=== PATIENT | female | born 1945 | race Caucasian/White ===

== ENCOUNTER 2018-01-26 16:20 | Inpatient (IN) ==
[2018-01-26] MEDS ORDERED: ASPIRIN 325 MG TABLET PO STA (17:13)
[2018-01-26] MEDS ORDERED: NITROGLYCERIN 2% OINT 1 INCH/GM PACK TOP STA (17:13)
[2018-01-26] MEDS ORDERED: methylPREDNISolone SOD SUC 125 MG/2 ML VIAL IV STA (17:13)
[2018-01-26] MEDS ORDERED: MORPHINE 4 MG/1 ML VIAL IV STA (17:13)
[2018-01-26] MEDS ORDERED: ONDANSETRON 4 MG/2 ML VIAL IV STA (17:13)
[2018-01-26] MEDS ORDERED: ALBUTEROL/IPRATROPIUM 3 ML NEB RESP TX STA (17:13)
[2018-01-26] MEDS ORDERED: ALUM/MAG/SIMETH/LIDO VISC 1:1 30 ML BOTTLE PO STA (17:13)
[2018-01-26] MEDS ORDERED: ENOXAPARIN 100 MG/ML SYRINGE SUBCUT STA (17:13)
[2018-01-26 17:21] LABS: Basophils # 0.1 10*3/uL (0.0-0.2); Basophils % 0.8 % (0.0-0.8); Eosinophils # 0.2 10*3/uL (0.0-0.87); Eosinophils % 2.2 % (0.00-10.9); Hematocrit 45.5 VOL% (35.7-47.0); Hemoglobin 14.7 GM/DL (12.0-16.0); Immature Granulocytes % 0.3 %; Immature Granulocytes Absolute 0.03 #; Lymphocytes # 1.7 10*3/uL (1.4-4.0); Lymphocytes % 17.5 % (21.3-54.2); Mean Corpuscular HGB Conc 32.3 GM/DL (32-36); Mean Corpuscular Hemoglobin 28 PG (27-34); Mean Corpuscular Volume 87.5 FL (87-102); Mean Platelet Volume 9.8 FL (9.6-12.0); Monocytes # 0.8 10*3/uL (0.11-0.8); Monocytes % 7.7 % (1.7-12.7); Neutrophils # 7.1 10*3/uL (1.4-7.4); Neutrophils % 71.5 % (38.7-73.9); Platelet Count 311 T/CUMM (130-400); Red Cell Distribution Width 14.7 % (9.3-17.3); White Blood Count 9.9 T/CUMM (4-12)
[2018-01-26] MEDS ORDERED: ENOXAPARIN 80 MG/0.8 ML SYRINGE SUBCUT ONE (17:29)
[2018-01-26 17:30] LABS: PT Patient Result 10.5 SECS
[2018-01-26 17:38] LABS: Alanine Aminotransferase 21 U/L (13-56); Albumin 4.1 G/DL (3.4-5.0); Alkaline Phosphatase 81 U/L (45-117); Aspartate Amino Transferase 24 U/L (0-37); Bilirubin,Total < 0.39 MG/DL (0.2-1.0); Blood Urea Nitrogen 18 MG/DL (7-18); Calcium 9.3 MG/DL (8.5-10.1); Glucose 108 MG/DL (74-106); Osmolality,Calculated 277.7 MOS/KG (273-304); Potassium 2.8 MMOL/L (3.5-5.1); Sodium 138 MMOL/L (136-145); Total Protein 7.5 G/DL (6.4-8.3)
[2018-01-26] MEDS ORDERED: POTASSIUM CHLORIDE 20 MEQ TABLET PO STA (17:44)
[2018-01-26 17:48] LABS: Apearance,Urine Slightly Hazy (Clear); Bilirubin,Urine Negative (Negative); Blood, Urine Negative (Negative); Glucose,Urine (UA) Negative (Negative); Ketones,Urine Negative (Negative); Mucus,Urine Occasional /LPF (Occasional); Nitrite,Urine Negative (Negative); Protein,Urine Negative; RBC,Urine 3 /HPF (0-4); Squamous Epithelial Cell,Urine Occasional /HPF (0-10); Urine Color Yellow (Yellow); Urine Urobilinogen < 2.0 EU/DL (0.2-1.0); WBC,Urine 6 /HPF (0-6)
[2018-01-26] MEDS ORDERED: ALBUTEROL 2.5 MG/3 ML NEB RESP TX PRN (18:35)
[2018-01-26] MEDS ORDERED: POTASSIUM CHLORIDE RIDER 10 MEQ in PREMIX 1 EACH IV PRN (18:53)
[2018-01-26 19:24] LABS: Risk Ratio 2.07; VLDL CHOLESTEROL 14.6 MG/DL
[2018-01-26] MEDS: ALBUTEROL/IPRATROPIUM 3 ML NEB RESP TX SCH (19:30)
[2018-01-26] MEDS ORDERED: LEVOFLOXACIN INJ 100 ML IV ONE (19:47)
[2018-01-26] MEDS ORDERED: methylPREDNISolone SOD SUC 40 MG/1 ML VIAL ONE (19:48)
[2018-01-26] MEDS: LEVOFLOXACIN INJ 500 MG in PREMIX 1 EACH IV SCH (19:57)
[2018-01-26] MEDS: traMADol 50 MG TABLET PO PRN (19:59)
[2018-01-26] MEDS: methylPREDNISolone SOD SUC 40 MG/1 ML VIAL IV SCH (20:00)
[2018-01-27] MEDS: ALBUTEROL/IPRATROPIUM 3 ML NEB RESP TX SCH ×4 (02:13→21:16)
[2018-01-27] MEDS: ASPIRIN CHEW 81 MG TABLET PO SCH ×2 (03:37→21:04)
[2018-01-27] MEDS: THEOPHYLLINE ER (24 HR) 400 MG TABLET PO SCH ×3 (03:40→21:03)
[2018-01-27] MEDS: OXYBUTYNIN 5 MG TABLET PO SCH ×3 (03:41→21:05)
[2018-01-27] MEDS: methylPREDNISolone SOD SUC 40 MG/1 ML VIAL IV SCH ×3 (03:55→21:03)
[2018-01-27 06:22] LABS: Basophils % 0.1 % (0.0-0.8); Hemoglobin 14.6 GM/DL (12.0-16.0); Immature Granulocytes % 0.9 %; Immature Granulocytes Absolute 0.06 #; Lymphocytes # 0.6 10*3/uL (1.4-4.0); Lymphocytes % 9.3 % (21.3-54.2); Mean Corpuscular HGB Conc 32.4 GM/DL (32-36); Mean Corpuscular Hemoglobin 28 PG (27-34); Mean Corpuscular Volume 86.7 FL (87-102); Mean Platelet Volume 9.7 FL (9.6-12.0); Monocytes # 0.1 10*3/uL (0.11-0.8); Monocytes % 0.9 % (1.7-12.7); Neutrophils % 88.8 % (38.7-73.9); Platelet Count 295 T/CUMM (130-400); Red Blood Count 5.19 MC/CUMM (3.8-5.5); Red Cell Distribution Width 14.8 % (9.3-17.3); White Blood Count 6.7 T/CUMM (4-12)
[2018-01-27] MEDS: LEVOTHYROXINE 50 MCG TABLET PO SCH (06:49)
[2018-01-27 06:52] LABS: Albumin 4.1 G/DL (3.4-5.0); Bilirubin,Total 0.4 MG/DL (0.2-1.0); Calcium 9.3 MG/DL (8.5-10.1); Osmolality,Calculated 284.5 MOS/KG (273-304); Potassium 3.7 MMOL/L (3.5-5.1); Total Protein 7.2 G/DL (6.4-8.3)
[2018-01-27] MEDS ORDERED: NON-FORMULARY MEDICATION (Fluticasone/Umeclidin/Vilanter [Trelegy Ellipta 100-62.5-25] 1 E INH SCH (09:00)
[2018-01-27] MEDS ORDERED: predniSONE 5 MG TABLET PO SCH (09:00)
[2018-01-27] MEDS ORDERED: VORTIOXETINE HYDROBROMIDE 20 MG PO SCH (09:00)
[2018-01-27] MEDS: POTASSIUM CHLORIDE 10 MEQ TABLET PO SCH (09:37)
[2018-01-27] MEDS: PANTOPRAZOLE 40 MG TABLET PO SCH (09:37)
[2018-01-27] MEDS: ROSUVASTATIN 10 MG TABLET PO SCH (09:37)
[2018-01-27] MEDS: FERROUS SULFATE 325 MG TABLET PO SCH (09:37)
[2018-01-27] MEDS: MONTELUKAST 10 MG TABLET PO SCH (09:38)
[2018-01-27] MEDS ORDERED: NITROGLYCERIN SL 0.4 MG TABLET SL PRN (10:58)
[2018-01-27] MEDS: SODIUM CHLORIDE 0.9% 1,000 ML IV SCH (12:08)
[2018-01-27] MEDS: traMADol 50 MG TABLET PO PRN ×2 (13:01→21:04)
[2018-01-27] MEDS ORDERED: BUTALBITAL/ACETAMIN/CAFFEINE 50-325-40 MG TABLET PO PRN (14:01)
[2018-01-27] MEDS: LEVOFLOXACIN INJ 500 MG in PREMIX 1 EACH IV SCH (18:00)
[2018-01-27] MEDS: TEMAZEPAM 15 MG CAPSULE PO SCH (21:05)
[2018-01-28] MEDS: ALBUTEROL/IPRATROPIUM 3 ML NEB RESP TX SCH ×4 (01:57→19:17)
[2018-01-28] MEDS: methylPREDNISolone SOD SUC 40 MG/1 ML VIAL IV SCH ×3 (03:13→20:27)
[2018-01-28] MEDS: SODIUM CHLORIDE 0.9% 1,000 ML IV SCH ×3 (03:13→13:30)
[2018-01-28 05:02] LABS: Basophils % 0.1 % (0.0-0.8); Hematocrit 36.8 VOL% (35.7-47.0); Immature Granulocytes % 0.9 %; Immature Granulocytes Absolute 0.14 #; Lymphocytes # 0.4 10*3/uL (1.4-4.0); Lymphocytes % 2.5 % (21.3-54.2); Mean Corpuscular HGB Conc 32.6 GM/DL (32-36); Mean Corpuscular Hemoglobin 28 PG (27-34); Monocytes # 0.5 10*3/uL (0.11-0.8); Neutrophils # 15.2 10*3/uL (1.4-7.4); Neutrophils % 93.5 % (38.7-73.9); Platelet Count 237 T/CUMM (130-400); Red Blood Count 4.23 MC/CUMM (3.8-5.5); Red Cell Distribution Width 15.6 % (9.3-17.3); White Blood Count 16.2 T/CUMM (4-12)
[2018-01-28 05:38] LABS: Albumin 3.4 G/DL (3.4-5.0); Bilirubin,Total 0.4 MG/DL (0.2-1.0); Calcium 8.9 MG/DL (8.5-10.1); Osmolality,Calculated 296.8 MOS/KG (273-304); Potassium 3.3 MMOL/L (3.5-5.1); Total Protein 5.8 G/DL (6.4-8.3)
[2018-01-28 05:48] LABS: Hypochromasia 1+; Lymphocytes 3 % (20-55); Microcytosis 1+; Segmented Neutrophils 95 % (50-85); Total Cells Counted 100
[2018-01-28 05:49] LABS: Platelet Estimate Normal
[2018-01-28] MEDS: LEVOTHYROXINE 50 MCG TABLET PO SCH (06:35)
[2018-01-28] MEDS ORDERED: POTASSIUM CHLORIDE 20 MEQ TABLET PO ONE (08:19)
[2018-01-28] MEDS: THEOPHYLLINE ER (24 HR) 400 MG TABLET PO SCH ×2 (09:20→20:31)
[2018-01-28] MEDS: ROSUVASTATIN 10 MG TABLET PO SCH (09:20)
[2018-01-28] MEDS: MONTELUKAST 10 MG TABLET PO SCH (09:21)
[2018-01-28] MEDS: PANTOPRAZOLE 40 MG TABLET PO SCH (09:21)
[2018-01-28] MEDS: POTASSIUM CHLORIDE 10 MEQ TABLET PO SCH (09:21)
[2018-01-28] MEDS: FERROUS SULFATE 325 MG TABLET PO SCH (09:21)
[2018-01-28] MEDS: OXYBUTYNIN 5 MG TABLET PO SCH ×2 (09:22→20:31)
[2018-01-28] MEDS: LEVOFLOXACIN INJ 500 MG in PREMIX 1 EACH IV SCH (18:00)
[2018-01-28] MEDS: TEMAZEPAM 15 MG CAPSULE PO SCH (20:32)
[2018-01-28] MEDS: ASPIRIN CHEW 81 MG TABLET PO SCH (20:33)
[2018-01-29] MEDS: ALBUTEROL/IPRATROPIUM 3 ML NEB RESP TX SCH ×4 (00:16→19:47)
[2018-01-29] MEDS: SODIUM CHLORIDE 0.9% 1,000 ML IV SCH ×2 (02:16→12:23)
[2018-01-29] MEDS: methylPREDNISolone SOD SUC 40 MG/1 ML VIAL IV SCH (04:53)
[2018-01-29 05:47] LABS: Basophils % 0.1 % (0.0-0.8); Hematocrit 34.1 VOL% (35.7-47.0); Hemoglobin 10.8 GM/DL (12.0-16.0); Immature Granulocytes Absolute 0.28 #; Lymphocytes # 0.5 10*3/uL (1.4-4.0); Lymphocytes % 3.6 % (21.3-54.2); Mean Corpuscular HGB Conc 31.7 GM/DL (32-36); Mean Corpuscular Hemoglobin 28 PG (27-34); Mean Corpuscular Volume 89.3 FL (87-102); Mean Platelet Volume 10.2 FL (9.6-12.0); Monocytes # 0.5 10*3/uL (0.11-0.8); Monocytes % 3.3 % (1.7-12.7); Platelet Count 218 T/CUMM (130-400); Red Blood Count 3.82 MC/CUMM (3.8-5.5); Red Cell Distribution Width 15.9 % (9.3-17.3); White Blood Count 14.3 T/CUMM (4-12)
[2018-01-29] MEDS: LEVOTHYROXINE 50 MCG TABLET PO SCH (06:04)
[2018-01-29 06:19] LABS: Calcium 8.5 MG/DL (8.5-10.1); Osmolality,Calculated 294.7 MOS/KG (273-304); Potassium 4.2 MMOL/L (3.5-5.1)
[2018-01-29 06:33] LABS: Hypochromasia 1+; Lymphocytes 7 % (20-55); Microcytosis 1+; Platelet Estimate Normal; Segmented Neutrophils 92 % (50-85); Total Cells Counted 100
[2018-01-29] MEDS: THEOPHYLLINE ER (24 HR) 400 MG TABLET PO SCH ×2 (09:14→21:20)
[2018-01-29] MEDS: ROSUVASTATIN 10 MG TABLET PO SCH (09:15)
[2018-01-29] MEDS: MONTELUKAST 10 MG TABLET PO SCH (09:15)
[2018-01-29] MEDS: PANTOPRAZOLE 40 MG TABLET PO SCH (09:15)
[2018-01-29] MEDS: OXYBUTYNIN 5 MG TABLET PO SCH ×2 (09:15→21:21)
[2018-01-29] MEDS: LINEZOLID 600 MG TABLET PO SCH ×2 (09:15→21:21)
[2018-01-29] MEDS: FERROUS SULFATE 325 MG TABLET PO SCH (09:15)
[2018-01-29] MEDS: POTASSIUM CHLORIDE 10 MEQ TABLET PO SCH (09:15)
[2018-01-29] MEDS: ASPIRIN CHEW 81 MG TABLET PO SCH (21:20)
[2018-01-29] MEDS: TEMAZEPAM 15 MG CAPSULE PO SCH (21:21)
[2018-01-30] MEDS: ALBUTEROL/IPRATROPIUM 3 ML NEB RESP TX SCH ×3 (00:34→15:17)
[2018-01-30 05:07] LABS: Basophils % 0.2 % (0.0-0.8); Hemoglobin 10.4 GM/DL (12.0-16.0); Immature Granulocytes % 1.5 %; Immature Granulocytes Absolute 0.16 #; Lymphocytes # 1.8 10*3/uL (1.4-4.0); Lymphocytes % 17.1 % (21.3-54.2); Mean Corpuscular HGB Conc 31.5 GM/DL (32-36); Mean Corpuscular Hemoglobin 29 PG (27-34); Mean Corpuscular Volume 91.2 FL (87-102); Monocytes # 0.9 10*3/uL (0.11-0.8); Monocytes % 8.2 % (1.7-12.7); Neutrophils # 7.9 10*3/uL (1.4-7.4); Platelet Count 196 T/CUMM (130-400); Red Blood Count 3.62 MC/CUMM (3.8-5.5); Red Cell Distribution Width 15.6 % (9.3-17.3); White Blood Count 10.8 T/CUMM (4-12)
[2018-01-30 05:37] LABS: Calcium 8.3 MG/DL (8.5-10.1); Osmolality,Calculated 296.4 MOS/KG (273-304); Potassium 3.9 MMOL/L (3.5-5.1)
[2018-01-30] MEDS ORDERED: predniSONE 10 MG TABLET PO SCH (09:00)
[2018-01-30] MEDS: MONTELUKAST 10 MG TABLET PO SCH (09:22)
[2018-01-30] MEDS: LEVOTHYROXINE 50 MCG TABLET PO SCH (09:22)
[2018-01-30] MEDS: FERROUS SULFATE 325 MG TABLET PO SCH (09:22)
[2018-01-30] MEDS: POTASSIUM CHLORIDE 10 MEQ TABLET PO SCH (09:22)
[2018-01-30] MEDS: THEOPHYLLINE ER (24 HR) 400 MG TABLET PO SCH (09:22)
[2018-01-30] MEDS: LINEZOLID 600 MG TABLET PO SCH (09:22)
[2018-01-30] MEDS: ROSUVASTATIN 10 MG TABLET PO SCH (09:22)
[2018-01-30] MEDS: OXYBUTYNIN 5 MG TABLET PO SCH (09:22)
[2018-01-30] MEDS: PANTOPRAZOLE 40 MG TABLET PO SCH (09:23)
[2018-01-30 12:20] VITALS: BP 146/77
== END 2018-01-30 16:30 | disposition home health service (06) | DRG 191 ==
LOC: N.ED 16:20 → SUATTDRO 18:55 → N.EDINP 18:55 → N.TELEN 01-27 05:51
PROVIDERS: ADMIT Internal Medicine Geriatric Medicine; ATTEND Internal Medicine